=== PATIENT | female | born 1985 | race Caucasian/White ===

== ENCOUNTER 2017-03-22 05:24 | Emergency (ER) | payer MEDICAID, OTHER ==
[~2017-03-22] VITALS: Ht 162.6 cm; Wt 75.5 kg
[2017-03-22 05:29] VITALS: Ht 162.6 cm; Wt 75.5 kg
--- NOTE | 2017-03-22 06:21 | ERD ---
ER Documentation Chief Complaint Date/Time DATE: 03/22/17 TIME: 06:18 Chief Complaint flank pain,denies dysuria HPI 31 year old female comes in with bilateral flank and lower back pain that started 2 days ago. She states that she has never had this pain before, pain is worse with movement and better at rest. No dysuria, urgency or frequency. Denies fever, nausea or vomiting. Denies vaginal bleeding or discharge. ROS All systems reviewed and are negative except as per history of present illness. Medications Home Meds Active Scripts Ferrous Sulfate* (Ferrous Sulfate*) 325 Mg Tabec, 325 MG PO TID, #90 TAB Prov:HAKEEM CORDERO PA-C 03/22/17 Docusate Sodium* (Colace*) 100 Mg Capsule, 100 MG PO TID, #30 CAP Prov:HAKEEM CORDERO PA-C 03/22/17 Ibuprofen* (Motrin*) 600 Mg Tab, 600 MG PO Q6, #30 TAB Prov:HAKEEM CORDERO PA-C 03/22/17 Allergies Allergies: Coded Allergies: No Known Allergy (Unverified , 03/22/17) Physical Exam Vitals Vital Signs Date Time Temp Pulse Resp B/P Pulse Ox O2 Delivery O2 Flow Rate FiO2 03/22/17 09:58 97.3 84 18 122/68 98 03/22/17 05:29 98.9 75 18 130/58 98 Physical Exam General: Well-developed, well-nourished. The patient appears in no acute distress. HEENT: Head is normocephalic, atraumatic. No scleral icterus. Neck: Supple. Nontender. Lungs: Clear to auscultation. Normal air movement. Heart: Regular rate and rhythm. S1 and S2 are normal. No murmurs, gallops, or rubs. Abdomen: Soft, nontender, nondistended. Bowel sounds are normoactive. No CVA tenderness Back: Diffuse bilateral thoracic and lumbar tenderness laterally, no midline tenderness, no rashes. Extremities: No clubbing or cyanosis. Normal pulses. Moving extremities x 4. No weakness. Neurologic: Alert and oriented 3. No focal deficits. Skin: Normal turgor. No rash or lesions. Result Diagram: 03/22/17 0615 03/22/17 0615 Results 24 hrs Laboratory Tests Test 03/22/17 06:15 White Blood Count 8.410^3/ul Red Blood Count 3.5610^6/ul Hemoglobin 8.8g/dl Hematocrit 29.0% Mean Corpuscular Volume 81.5fl Mean Corpuscular Hemoglobin 24.7pg Mean Corpuscular Hemoglobin Concent 30.3g/dl Red Cell Distribution Width 19.8% Platelet Count 97882^3/UL Mean Platelet Volume 9.6fl Neutrophils % 61.9% Lymphocytes % 26.8% Monocytes % 8.8% Eosinophils % 1.7% Basophils % 0.4% Nucleated Red Blood Cells % 0.0/100WBC Neutrophils # 5.210^3/ul Lymphocytes # 2.310^3/ul Monocytes # 0.710^3/ul Eosinophils # 0.110^3/ul Basophils # 0.010^3/ul Nucleated Red Blood Cells # 0.010^3/ul Urine Color LT. YELLOW Urine Clarity CLEAR Urine pH 7.0 Urine Specific [place] 1.010 Urine Ketones NEGATIVE Urine Nitrite NEGATIVE Urine Bilirubin NEGATIVE Urine Urobilinogen 0.2 E.U./dL Urine Leukocyte Esterase NEGATIVE Urine Microscopic RBC 2-5/HPF Urine Microscopic WBC 0-2/HPF Urine Epithelial Cells FEW Urine Bacteria RARE Urine Hemoglobin 1+ Urine Glucose NEGATIVE% Urine Total Protein NEGATIVE Sodium Level 142mmol/L Potassium Level 3.7mmol/L Chloride Level 106mmol/L Carbon Dioxide Level 26mmol/L Anion Gap 14 Blood Urea Nitrogen 14mg/dl Creatinine 0.79mg/dl Glucose Level 90mg/dl Calcium Level 9.1mg/dl Total Bilirubin 0.3mg/dl Direct Bilirubin 0.00mg/dl Indirect Bilirubin 0.3mg/dl Aspartate Amino Transf (AST/SGOT) 41IU/L Alanine Aminotransferase (ALT/SGPT) 55IU/L Alkaline Phosphatase 56IU/L Total Protein 7.4g/dl Albumin 4.2g/dl Globulin 3.20g/dl Albumin/Globulin Ratio 1.31 Lipase 144U/L Current Medications Medications (Trade) Dose Ordered Sig/Praveen Route PRN Reason Start Time Stop Time Status Last Admin Dose Admin Acetaminophen/ Hydrocodone Bitart ([place] (5/325)) 1 tab ONCE ONCE PO 03/22/17 06:30 03/22/17 06:31 DC 03/22/17 06:33 PROCEDURE: CT Abdomen and Pelvis without contrast. CLINICAL INDICATION: Bilateral flank pain TECHNIQUE: CT scan of the abdomen and pelvis without contrast was performed on a multi-slice CT scanner without intravenous contrast. Coronal and sagittal reformatted images were obtained from the axial source images. Images were reviewed on a high-resolution PACS workstation. One or more of the following does reduction techniques were used: Automated exposure control; adjustment of the mA and/or kV according to patient size; use of the aorta of reconstruction technique. The total exam CTDI equals 12.9 mGy and the total exam DLP equals 803.2 mGy-cm. COMPARISON: None available. FINDINGS: There are minimal dependent changes in the posterior lower lobes. Heart size is normal, and there is no evidence of pericardial thickening or effusion. There is decreased density of the blood pool with respect to the myocardium, typical of anemia. Bilateral breast prosthesis are incidentally noted. The liver, spleen, and pancreas are normal given limitations of a noncontrast CT examination. The gallbladder is contracted.. The adrenal glands are normal. The kidneys without renal calculus or hydronephrosis. The aorta is of normal caliber. There is no retroperitoneal lymph node enlargment. There is no evidence of large or small bowel obstruction. There is mild retained colonic stool. Appendicoliths are seen in the distal tip of an otherwise normal appendix.. No free fluid or fluid collections are identified. No inflammatory changes are seen. The uterus is present. There is prominence in the right adnexa which may represent ovarian cysts. No enlarged pelvic sidewall lymph nodes are seen. The bladder is within normal limits. There is a small amount of pelvic free fluid. The inguinal regions are unremarkable. The bones are intact. IMPRESSION: 1. No CT evidence of urolithiasis. 2. No CT evidence of acute intra-abdominal or pelvic process. 3. Prominence in the right adnexa likely related to physiologic cysts. Small pelvic free fluid is likely also physiologic. This finding can be further evaluated with pelvic ultrasound if clinically indicated. 4. Suggestion of anemia, correlate with laboratory values. RPTAT: KK .Chris Washington MD, Date Time Electronically viewed and signed by .Chris Washington MD, on 2016 09:17 .B/ Procedures/MDM 31-year-old female presents with bilateral flank pain and back pain that started 2 days ago. Patient's workup and imaging are essentially negative. She does have anemia however no elevated white blood cell count, chemistries are normal and urine was negative for infection. CT abdomen pelvis was performed that shows appendicolith however no evidence of appendicitis, kidneys are unremarkable, and noted to have anemia. There is no acute intra-abdominal process that is acute or surgical. Was noted mild constipation. Differentials considered include UTI, pancreatitis, acute hepatobiliary process, pancreatitis , kidney stones, septic kidney stones, ovarian torsion, and among others. She was given [place] in the emergency department and feels better at this time and will be discharged home. She will be given on Colace for constipation, ibuprofen for pain as well as iron secondary to anemia. She was asked to recheck with her primary care doctor. Departure Diagnosis: Primary Impression: Flank pain Additional Impression: Anemia Condition: HAKEEM Hinkle PA-C March 22, 2017 06:21
[2017-03-22] MEDS ORDERED: HYDROCODONE/APAP (5/325) TAB PO ONE (06:30)
[2017-03-22 06:56] LABS: ADD SCAN DIFF NO
[2017-03-22 06:58] LABS: BASOPHILS % 0.4 % (0.0-2.0); EOSINOPHILS # 0.1 10^3/ul (0.0-0.5); EOSINOPHILS % 1.7 % (0.0-7.0); HEMOGLOBIN 8.8 g/dl (12.0-16.0); LYMPHOCYTES # 2.3 10^3/ul (0.8-2.9); LYMPHOCYTES % 26.8 % (15.0-51.0); MEAN CORPUSCULAR HEMOGLOBIN 24.7 pg (29.0-33.0); MEAN CORPUSCULAR HGB CONC 30.3 g/dl (32.0-37.0); MEAN CORPUSCULAR VOLUME 81.5 fl (82.0-101.0); MEAN PLATELET VOLUME 9.6 fl (7.4-10.4); MONOCYTE # 0.7 10^3/ul (0.3-0.9); MONOCYTES % 8.8 % (0.0-11.0); NEUTROPHIL # 5.2 10^3/ul (1.6-7.5); NEUTROPHILS % 61.9 % (39.0-77.0); PLATELET COUNT 534 10^3/UL (140-415); RED BLOOD COUNT 3.56 10^6/ul (4.20-5.40); RED CELL DISTRIBUTION WIDTH 19.8 % (11.5-14.5); WHITE BLOOD COUNT 8.4 10^3/ul (4.8-10.8)
[2017-03-22 07:12] LABS: ALBUMIN 4.2 g/dl (3.3-4.9)
[2017-03-22 07:13] LABS: POTASSIUM 3.7 mmol/L (3.5-5.1)
[2017-03-22 07:15] LABS: ALBUMIN/GLOBULIN RATIO 1.31; BILIRUBIN,INDIRECT 0.3 mg/dl (0-1.1); BILIRUBIN,TOTAL 0.3 mg/dl (0.2-1.3); CREATININE 0.79 mg/dl (0.44-1.00); TOTAL PROTEIN 7.4 g/dl (6.1-8.1)
[2017-03-22 07:16] LABS: CALCIUM 9.1 mg/dl (8.4-10.2)
[2017-03-22 07:20] LABS: ADD UMIC YES; URINE BILIRUBIN (Dip) NEGATIVE (NEGATIVE); URINE BLOOD (Dip) 1+ (NEGATIVE); URINE COLOR LT. YELLOW (YELLOW); URINE GLUCOSE (Dip) NEGATIVE (NEGATIVE); URINE KETONES (Dip) NEGATIVE (NEGATIVE); URINE LEUKOCYTE ESTERASE (Dip) NEGATIVE (NEGATIVE); URINE NITRITE (Dip) NEGATIVE (NEGATIVE); URINE TOTAL PROTEIN (Dip) NEGATIVE (NEGATIVE); URINE UROBILINOGEN (Dip) 0.2 E.U./dL (0.1-1.0)
[2017-03-22 07:31] LABS: BACTERIA,URINE RARE
--- NOTE | 2017-03-22 09:18 | RADRPT ---
PROCEDURE: CT Abdomen and Pelvis without contrast. CLINICAL INDICATION: Bilateral flank pain TECHNIQUE: CT scan of the abdomen and pelvis without contrast was performed on a multi-slice CT sc kenisha without intravenous contrast. Coronal and sagittal reformatted images were obtained from the axial source images. Images were reviewed on a high-resolution PACS workstation. One or more of the following does reduction techniques were used: Automated exposure control; adjustment of the mA an d/or kV according to patient size; use of the aorta of reconstruction technique. The total exam CTD I equals 12.9 mGy and the total exam DLP equals 803.2 mGy-cm. COMPARISON: None available. FINDINGS: There are minimal dependent changes in the posterior lower lobes. Heart size is normal, and there i s no evidence of pericardial thickening or effusion. There is decreased density of the blood pool w ith respect to the myocardium, typical of anemia. Bilateral breast prosthesis are incidentally note d. The liver, spleen, and pancreas are normal given limitations of a noncontrast CT examination. The g allbladder is contracted.. The adrenal glands are normal. The kidneys without renal calculus or hydronephrosis. The aorta is of normal caliber. There is no retroperitoneal lymph node enlargment. There is no evidence of large or small bowel obstruction. There is mild retained colonic stool. Ap pendicoliths are seen in the distal tip of an otherwise normal appendix.. No free fluid or fluid c ollections are identified. No inflammatory changes are seen. The uterus is present. There is prominence in the right adnexa which may represent ovarian cysts. N o enlarged pelvic sidewall lymph nodes are seen. The bladder is within normal limits. There is a s mall amount of pelvic free fluid. The inguinal regions are unremarkable. The bones are intact. IMPRESSION: 1. No CT evidence of urolithiasis. 2. No CT evidence of acute intra-abdominal or pelvic process. 3. Prominence in the right adnexa likely related to physiologic cysts. Small pelvic free fluid is likely also physiologic. This finding can be further evaluated with pelvic ultrasound if clinically indicated. 4. Suggestion of anemia, correlate with laboratory values. RPTAT: KK .Chris Washington MD, Date Time Electronically viewed and signed by .Chris Washington MD, MD on 03/22/2017 09:17 .B/
[2017-03-22] MEDS ORDERED: IBUP-1542 PO (09:30)
[2017-03-22] MEDS ORDERED: DOCU-144 PO (09:30)
[2017-03-22] MEDS ORDERED: FER325 PO (09:52)
[2017-03-22 09:58] VITALS: BP 122/68; PULSE 84; RESP 18; TEMP 97.3
== END 2017-03-22 10:00 | disposition home or self-care (01) ==
LOC: FTE 05:24
DX: R10.9 Unspecified abdominal pain (principal); D64.9 Anemia, unspecified
CPT/HCPCS: 74176; 80053; 81001; 81003; 83690; 85025; Z7610; 36415